=== PATIENT | female | born 1965 | race Caucasian/White ===

== ENCOUNTER 2019-10-06 07:56 | Emergency (ER) | payer MEDICAID ==
[~2019-10-06] VITALS: Ht 162.6 cm; Wt 75.6 kg
[2019-10-06 08:09] VITALS: BP 178/76
--- NOTE | 2019-10-06 08:30 | NUR ---
PRETZEL PACKER: PT TO ROOM FROM LOBBY
--- NOTE | 2019-10-06 08:43 | NUR ---
Pt here with bilateral ear pain. States she has no PMH. Lives [facility].
--- NOTE | 2019-10-06 08:47 | NUR ---
REPORT RECEIVED FROM LUIS LINDSEY. [facility]
== END 2019-10-06 09:04 | disposition home or self-care (01) ==
LOC: ED 08:54
DX: H66.003 Acute suppurative otitis media without spontaneous rupture of ear drum, bilateral (principal); H60.502 Unspecified acute noninfective otitis externa, left ear; F17.210 Nicotine dependence, cigarettes, uncomplicated
CPT/HCPCS: 99283

== ENCOUNTER 2019-10-30 23:54 | Emergency (ER) | payer MEDICAID ==
[~2019-10-30] VITALS: Ht 167.6 cm; Wt 86.7 kg
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
[2019-10-31 00:24] LABS: BASOPHILS # (AUTO) 0.03 x10^3/uL (0-0.1); BASOPHILS % (AUTO) 0 % (0-1); EOSINOPHILS # (AUTO) 0.12 x10^3/uL (0-0.4); EOSINOPHILS % (AUTO) 2 % (1-7); LYMPHOCYTES # (AUTO) 3.47 x10^3/uL (1-3.4); LYMPHOCYTES % (AUTO) 42 % (22-44); MD NO; MEAN CORPUSCULAR HEMOGLOBIN 33.2 pg (27.0-34.8); MEAN CORPUSCULAR HGB CONC 33.3 g/dL (32.4-35.8); MEAN CORPUSCULAR VOLUME 99.7 fL (80-100); MEAN PLATELET VOLUME 8.6 fL (7.4-10.4); MONOCYTES # (AUTO) 0.59 x10^3/uL (0.2-0.8); MONOCYTES % (AUTO) 7 % (2-9); NEUTROPHILS # (AUTO) 4.04 x10^3/uL (1.8-6.8); NEUTROPHILS % (AUTO) 49 % (42-75); PLATELET COUNT 233 x10^3/uL (130-400); RED BLOOD COUNT 4.35 x10^6/uL (3.82-5.3); RED CELL DISTRIBUTION WIDTH 14.5 % (9.6-15.2)
--- NOTE | 2019-10-31 00:25 | NUR ---
XRAY AT AT THIS TIME.
[2019-10-31] MEDS ORDERED: SODIUM CHLORIDE FLUSH 10ML SYR IVF ONE (00:30)
[2019-10-31 00:31] LABS: ALBUMIN 3.1 g/dL (3.4-5.0); ANION GAP 13 mmol/L (5-15); CALCIUM 7.7 mg/dL (8.5-10.1); CHLORIDE 108 mmol/L (98-107); CREATININE 0.99 mg/dL (0.55-1.02)
--- NOTE | 2019-10-31 01:18 | NUR ---
PT ASLEEP IN [facility]. PT NEEDS TO BE AROUSED REPEATEDLY AND REMINDED TO DEEP BREATHE TO KEEP O2 ABOVE 92%, BUT IS ABLE TO FOLLOW INSTRUCTIONS AND COOPERATES WITH STAFF. PT VSS AND UPDATED IN EMR AT THIS TIME. PT REQUESTING TAXI [facility] HOME UPON D/C.
--- NOTE | 2019-10-31 01:43 | NUR ---
REPORT FROM KHOA SMITH. PT RESTING AND IS AROUSABLE TO VOICE, VSS, CALL LIGHT IN REACH
[2019-10-31 03:06] VITALS: BP 106/71
--- NOTE | 2019-10-31 03:07 | NUR ---
PT AMBULATED TO BATHROOM WITH A STEADY GAIT. PIV REMOVED AND PT GIVEN CAB VOUCHER HOME.
== END 2019-10-31 03:09 | disposition home or self-care (01) ==
LOC: ED 10-31 01:00
DX: F11.10 Opioid abuse, uncomplicated (principal); F15.10 Other stimulant abuse, uncomplicated; T40.1X1A Poisoning by heroin, accidental (unintentional), initial encounter; R94.31 Abnormal electrocardiogram [ECG] [EKG]; R41.82 Altered mental status, unspecified; F17.200 Nicotine dependence, unspecified, uncomplicated; Y92.89 Other specified places as the place of occurrence of the external cause
CPT/HCPCS: 36415; 71045; 80048; 80307; 82040; 85025; 93005; 99285

== ENCOUNTER 2019-11-27 05:54 | Emergency (ER) | payer MEDICAID ==
[~2019-11-27] VITALS: Ht 160 cm; Wt 73.8 kg
[2019-11-27 05:57] VITALS: BP 112/73
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
== END 2019-11-27 06:27 | disposition home or self-care (01) ==
LOC: ED 06:16
DX: R10.32 Left lower quadrant pain (principal); R10.12 Left upper quadrant pain; R11.2 Nausea with vomiting, unspecified; R19.7 Diarrhea, unspecified; F17.200 Nicotine dependence, unspecified, uncomplicated
CPT/HCPCS: 99283

== ENCOUNTER 2020-04-27 09:38 | Emergency (ER) | payer MEDICAID ==
[~2020-04-27] VITALS: Ht 162.6 cm; Wt 72.5 kg
[2020-04-27] MEDS ORDERED: ALBUTEROL 0.5%, 20ML ONE (09:40)
[2020-04-27] MEDS ORDERED: ALBUTEROL 0.5%, 20ML NPPBCONT PRN (09:40)
[2020-04-27 09:57] LABS: BASOPHILS % (AUTO) 1 % (0-1); EOSINOPHILS % (AUTO) 0 % (1-7); LYMPHOCYTES % (AUTO) 35 % (22-44); MEAN CORPUSCULAR HEMOGLOBIN 33.4 pg (27.0-34.8); MEAN CORPUSCULAR HGB CONC 32.3 g/dL (32.4-35.8); MEAN PLATELET VOLUME 8.1 fL (7.4-10.4); MONOCYTES % (AUTO) 7 % (2-9); NEUTROPHILS % (AUTO) 57 % (42-75); PLATELET COUNT 324 x10^3/uL (130-400); RED BLOOD COUNT 4.74 x10^6/uL (3.82-5.3); RED CELL DISTRIBUTION WIDTH 13.8 % (9.6-15.2)
[2020-04-27] MEDS ORDERED: PLEASE ENTER HEIGHT AND WEIGHT MC SCH (10:00)
[2020-04-27] MEDS ORDERED: PLEASE ENTER ALLERGIES MC SCH (10:00)
[2020-04-27] MEDS ORDERED: SODIUM CHLORIDE FLUSH 10ML SYR IVF ONE (10:00)
[2020-04-27 10:04] LABS: ALANINE AMINOTRANSFERASE 151 U/L (12-78); ALBUMIN 3.4 g/dL (3.4-5.0); ANION GAP 14 mmol/L (5-15); CALCIUM 8.6 mg/dL (8.5-10.1); CHLORIDE 106 mmol/L (98-107)
[2020-04-27 10:08] LABS: ALKALINE PHOSPHATASE 129 U/L (45-117); BILIRUBIN,TOTAL 0.3 mg/dL (0.2-1.0); TOTAL PROTEIN 8.3 g/dL (6.4-8.2); TROPONIN I < 0.015 ng/mL (0.000-0.045)
--- NOTE | 2020-04-27 10:11 | NUR ---
0930, BIB EMS FROM HOME, PT CYANOTIC & UNRESPONSIVE. BVM INITIATED AND 0.5MG NARCAN GIVEN W/ EFFECT. SPON BREATHING AND 100% ON RA, PT THEN DETERIATED INROUTE AND A 2ND DOSE 0.25MG NARCAN GIVEN WITH EFFECT. PT PRESENTS, AWAKE BUT DROWSY, GILES TO COMMAND, INCREASED WOB, +STRIDOR AND DECREASED BS T/O. +DOAPHORETIC. DR JACKSON AT BEDSIDE, PT ARROUSES TO VERBAL STIM, AND GILES APPROPRIATELY TO COMMAND, DENIES ANY DRUG USE. ALL MNITORS PLACED AND EKG OBTAINED. AUDIBLE STRIDOR, RESP WITH USE OF ABDOBMINAL MUSCLES WITH SEW/SAW MOTION. RT AT BEDSIDE AND CONT BREATHING TREATMENT INITIATED.
--- NOTE | 2020-04-27 10:18 | NUR ---
STRIDOR SLIGHTLY IMPROVED. PT REMAINS DRWSY BUT ARRUSES EASILY, ABLE TO PROVIDE NAME AND . CLINICAL SCREEN COMPLETED. ASSESSMENT DISCUSSED WITH DR. JACKSON. PT VSS
[2020-04-27] MEDS ORDERED: methylPREDNISolone SOD SUCC 125 MG/2 ML ONE (10:38)
[2020-04-27 10:47] LABS: MD SCAN
[2020-04-27] MEDS ORDERED: methylPREDNISolone SOD SUCC 125 MG/2 ML IV ONE (11:00)
--- NOTE | 2020-04-27 11:13 | NUR ---
RT AT BEDSIDE, BIPAP INITIATED WITH EFFECT. STRIDOR RESSOLVED AND NOW ABLE TO AUSCULTATE LUNG SOUNDS T/O. RV 550'S. BIPAP 15/8 FI02 100% BACKUP RATE 8. PT TOLLERATING WELL
[2020-04-27] MEDS ORDERED: CEFTRIAXONE PMX 1GM/50ML 50 ML ONE (11:22)
--- NOTE | 2020-04-27 11:27 | NUR ---
PICTURE COPYIST AT BEDSIDE TO DRAW BLD CULTURES
[2020-04-27] MEDS ORDERED: AZITHROMYCIN 500 MG in SODIUM CHLORIDE 0.9% 250 ML IV ONE (11:30)
[2020-04-27] MEDS ORDERED: CEFTRIAXONE PMX 1GM/50ML 50 ML IV ONE (11:30)
--- NOTE | 2020-04-27 11:54 | NUR ---
FLOAT RN: PT DOING WELL ON BIPAP AT THIS TIME. PT NON RESPONSIVE TO VERBAL STIMULI HOWEVER AWAKENS BRIEFLY WHEN TOUCHED. NAD. VSS. ABX INFUSING.
--- NOTE | 2020-04-27 12:36 | NUR ---
DR RODRIGUES AND PULMNOLOGIST AT BEDSIDE. ORDER REC'D TO D/C BIPAP, 100%NRB PLACED.
--- NOTE | 2020-04-27 12:42 | NUR ---
PT WAS PLACED ON NRB MASK TO FACILITATE MD BEING ABLE TO TALK TO PT. BIPAP RE-INITIATED.
[2020-04-27] MEDS ORDERED: NICOTINE 21 MG/24 HR PATCH.TD24 TD SCH (13:00)
[2020-04-27] MEDS ORDERED: ENOXAPARIN 40 MG/0.4 ML SQ SCH (13:00)
[2020-04-27] MEDS ORDERED: ONDANSETRON 2MG/ML, 2ML IVPush PRN (13:00)
[2020-04-27] MEDS ORDERED: LABETALOL 5MG/ML, 20ML IVPush PRN (13:00)
[2020-04-27] MEDS ORDERED: MELATONIN 5 MG TABLET PO PRN (13:00)
[2020-04-27] MEDS: methylPREDNISolone SOD SUCC 125 MG/2 ML IVPush SCH (13:00)
[2020-04-27] MEDS ORDERED: ACETAMINOPHEN 325 MG TABLET PO PRN (13:00)
[2020-04-27] MEDS ORDERED: NALOXONE 0.4 MG/ML, 1ML IVPush ONE (13:00)
[2020-04-27] MEDS ORDERED: DOCUSATE 100 MG CAPSULE PO PRN (13:00)
[2020-04-27] MEDS ORDERED: POTASSIUM CHLORIDE 20 MEQ in SODIUM CHLORIDE 0.9% 250 ML IV ONE (13:00)
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
[2020-04-27 13:46] LABS: FREE T4 (FREE THYROXINE) 0.99 ng/dL (0.76-1.46)
[2020-04-27] MEDS ORDERED: LORazepam 1MG TABLET PO PRN ×3 (14:00)
[2020-04-27] MEDS ORDERED: LORazepam 2 MG/ML, 1ML IV PRN ×2 (14:00)
[2020-04-27] MEDS ORDERED: LORazepam 0.5MG TABLET PO PRN (14:00)
[2020-04-27] MEDS ORDERED: THIAMINE 100 MG in SODIUM CHLORIDE 0.9% 50 ML IV SCH (14:00)
--- NOTE | 2020-04-27 14:20 | NUR ---
PT TO CT, ON MONITOR, 100%NRB MASK AT 10L, AND RN ESCORT.
--- NOTE | 2020-04-27 14:30 | NUR ---
PT RTD TO ED W/O INCIDENT. ORAL CARE COMPLETED AND BED LINEN CHANGE. BIPAP MASK RE-PLACED AND THERAPY CONTINUED.
[2020-04-27] MEDS ORDERED: OMNIPAQUE 350 MG/ML, 150 ML BOTTLE ONE (14:35)
[2020-04-27] MEDS ORDERED: ENOXAPARIN 40 MG/0.4 ML ONE (14:59)
[2020-04-27] MEDS ORDERED: NICOTINE 21 MG/24 HR PATCH.TD24 ONE (14:59)
[2020-04-27 15:26] LABS: AMPHETAMINE SCREEN, URINE Positive (Negative); BARBITURATE SCREEN, URINE Negative (Negative); BENZODIAZEPINE SCREEN, URINE Negative (Negative); CANNABINOID SCREEN, URINE Negative (Negative); COCAINE SCREEN, URINE Negative (Negative); METHADONE SCREEN, URINE Negative (Negative); OPIATE SCREEN, URINE Negative (Negative)
[2020-04-27 15:26] LABS: INTERNATIONAL NORMALIZED RATIO 1.05 (0.93-1.1); PROTHROMBIN TIME 11.1 Seconds (9.6-11.5)
--- NOTE | 2020-04-27 15:43 | NUR ---
DISCUSSED ABG RESULTS WITH DR BYERS, SP02 CORRELATES THE P02 ON THE BLOOD GAS. WILL TITRATE DOWN FI02 TO MAINTAIN SP02 GREATER THAN 90%
--- NOTE | 2020-04-27 16:25 | NUR ---
BIPAP MASK REMOVED AND ORAL CARE COMPLETED. PT TOLLERATED WELL AND WAS COOPERATIVE. PT OOB TO COMMODE WITH MIN ASSIST. VOIDED AND RTD TO [facility]. BIPAP MASK IN PLACE AND THERAPY CONTINUES. RT AT BEDSIDE, FI02 SUPPORT DECREASED TO .50
--- NOTE | 2020-04-27 17:44 | NUR ---
PT MOVED ONTO HOSPITAL BED. PT ABLE TO STAND AND TRANSFER, TOLLERATED ACTIVITY WELL.
--- NOTE | 2020-04-27 19:46 | NUR ---
SORAIDAAR RPT TO LUIS LYNN
--- NOTE | 2020-04-27 20:52 | NUR ---
PT SLEEPING IN FLOOR BED, PT ON BIPIAP, PT ON MONITOR, PT VSS, RN WILL CONTINUE TO ASSESS PT
[2020-04-27] MEDS ORDERED: SODIUM CHLORIDE FLUSH 10ML SYR IVF SCH (21:00)
[2020-04-27] MEDS ORDERED: FAMOTIDINE 20 MG/2 ML IVPush SCH (21:00)
--- NOTE | 2020-04-27 21:34 | NUR ---
PT REQUESTED WATER, RN PERFORMED SWOLLOW SCEEN ON PT, PT DRANK 90ML OF WATER WITHOUT DIFFICULTY = PASSED
[2020-04-27] MEDS ORDERED: FAMOTIDINE 20 MG/2 ML ONE (21:38)
[2020-04-27] MEDS ORDERED: LORazepam 2 MG/ML, 1ML ONE (21:50)
[2020-04-27] MEDS: LORazepam 2 MG/ML, 1ML IV PRN (21:53)
--- NOTE | 2020-04-27 22:53 | NUR ---
pt sleeping in floor bed with bipap, monitor conected to pt, pt vss. pt has no wants or needs at this time. pt medicated per emar
--- NOTE | 2020-04-28 00:02 | NUR ---
PT MOVED TO RESP ROOM ER39, PT DID NOT AWAKE DUYRING TRANSPORT FROM ROOM TO ROOM, PT SLEEPING IN FLOOR BED ON MONITOR IN ED 39. PT VSS
[2020-04-28] MEDS ORDERED: methylPREDNISolone SOD SUCC 125 MG/2 ML ONE ×2 (00:08→06:33)
[2020-04-28] MEDS: methylPREDNISolone SOD SUCC 125 MG/2 ML IVPush SCH ×2 (00:11→06:35)
--- NOTE | 2020-04-28 01:14 | NUR ---
PT SLEEPING IN FLOOR BED, PT ON BIPIAP, PT ON MONITOR, PT VSS, RN WILL CONTINUE TO ASSESS PT
[2020-04-28] MEDS ORDERED: LORazepam 2 MG/ML, 1ML ONE (02:09)
--- NOTE | 2020-04-28 02:14 | NUR ---
PT REMOVED BIPAP DEVISE FROM HEAD AND WAS 85% AT CONTACT, PT AGGITATED. PT ASSISTED TO BEDSIDE BATHROOM AND PT RETURNED BACK TO BED, CIWA ASSESMENT DONE, PT MEDICATED PER EMAR. PT MORE CALM AFTER WITH BIPAP REPLACED BEFORE MEDS
[2020-04-28] MEDS: LORazepam 2 MG/ML, 1ML IV PRN (02:17)
--- NOTE | 2020-04-28 04:57 | NUR ---
PT SLEEPING IN FLOOR BED, PT ON BIPIAP, PT ON MONITOR, PT VSS, RN WILL CONTINUE TO ASSESS PT
--- NOTE | 2020-04-28 06:31 | NUR ---
PT SLEEPING IN BED WITH BIPAP ON PT, PT ON MONITOR, PT VSS
[2020-04-28 06:55] LABS: ALANINE AMINOTRANSFERASE 104 U/L (12-78); ALBUMIN 2.9 g/dL (3.4-5.0); ANION GAP 5 mmol/L (5-15); CALCIUM 8.7 mg/dL (8.5-10.1); CHLORIDE 107 mmol/L (98-107); CREATININE 0.47 mg/dL (0.55-1.02)
[2020-04-28 06:58] LABS: ALKALINE PHOSPHATASE 108 U/L (45-117); BILIRUBIN,TOTAL 0.3 mg/dL (0.2-1.0); TOTAL PROTEIN 7.7 g/dL (6.4-8.2)
[2020-04-28 07:03] LABS: BASOPHILS % (AUTO) 0 % (0-1); EOSINOPHILS % (AUTO) 0 % (1-7); LYMPHOCYTES % (AUTO) 8 % (22-44); MEAN CORPUSCULAR HEMOGLOBIN 32.8 pg (27.0-34.8); MEAN CORPUSCULAR HGB CONC 32.1 g/dL (32.4-35.8); MEAN PLATELET VOLUME 8.5 fL (7.4-10.4); MONOCYTES % (AUTO) 2 % (2-9); NEUTROPHILS % (AUTO) 90 % (42-75); PLATELET COUNT 351 x10^3/uL (130-400); RED BLOOD COUNT 4.51 x10^6/uL (3.82-5.3); RED CELL DISTRIBUTION WIDTH 13.9 % (9.6-15.2)
--- NOTE | 2020-04-28 07:03 | NUR ---
I AM ASSUMING CARE OF THIS PT FROM JOLLY (LUIS). SBAR WAS EXCHANGED AT THE BEDSIDE.
--- NOTE | 2020-04-28 07:03 | NUR ---
CORRECTION TO PRIOR NOTE. I AM ASSUMING CARE OF THIS PT FROM SHANE (LUIS). SBAR WAS EXCHANGED AT THE BEDSIDE.
--- NOTE | 2020-04-28 07:36 | NUR ---
cardiac rhythm strip printed and placed on chart
[2020-04-28 07:55] LABS: MD SCAN
--- NOTE | 2020-04-28 08:49 | NUR ---
PT REFUSING TO KEEP BIPAP ON, CHANGED TO 6Lnc SAT 91, PT ANGRY STATES SHE WANTS TO LEAVE, EXPLAINED NEED TO STAY DUE TO OXYGEN NEED.
[2020-04-28 08:51] VITALS: BP 137/79
[2020-04-28] MEDS ORDERED: CEFTRIAXONE PMX 1GM/50ML 50 ML ONE (08:58)
[2020-04-28] MEDS ORDERED: AZITHROMYCIN 500 MG in SODIUM CHLORIDE 0.9% 250 ML IV SCH (09:00)
[2020-04-28] MEDS ORDERED: CEFTRIAXONE PMX 1GM/50ML 50 ML IV SCH (09:00)
--- NOTE | 2020-04-28 09:10 | NUR ---
TIFFANIE (RN) IS ASSUMING CARE OF THIS PT AT THIS TIME. SBAR WAS EXCHANGED AT THE BEDSIDE.
--- NOTE | 2020-04-28 09:12 | NUR ---
CALLED DR. RODRIGUES REGARDING PATIENT REFUSING BIPAP, ENTITLE AT 31-40 ON 6LNC. PT STATES OK TO FEED PT, MAY DOWN GRADE PT.
--- NOTE | 2020-04-28 09:39 | NUR ---
PT AT 100% BREAKFAST, DRINKING COFFEE, GAVE TOOTHBRUSH AND TOOTHPASTE FOR AM CARE.
--- NOTE | 2020-04-28 09:45 | NUR ---
Makenzie escoto in [place] - 04/28/20 at 0956 by MICHAEL ORAL HYGIENE KIT PROVIDED TO PATIENT
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
--- NOTE | 2020-04-28 10:18 | NUR ---
DR. RODRIGUES, SOMMER RT AND THIS RN IN ROOM. PT STATES SHE WANTS TO GO AMA, STATES, "I DONT CARE IF I , I NEED TO GO HOME AND TAKE CARE OF MY ANIMALS". PT A&OX4. AGREED TO GO HOME WITH OXYGEN AND POLYSTYRENE BEAD MOLDER MEDICATIONS FOR [facility]. 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
[2020-04-28] MEDS ORDERED: AZIT500T10 PO (10:22)
[2020-04-28] MEDS ORDERED: FLUT1AER INH (10:22)
[2020-04-28] MEDS ORDERED: AMOX1TAB64 PO (10:22)
[2020-04-28] MEDS ORDERED: ALBU18HF INH (10:22)
[2020-04-28] MEDS ORDERED: PRED20TA PO (10:22)
--- NOTE | 2020-04-28 10:29 | NUR ---
GAVE HER CLOTHES FROM [employer] [facility]
--- NOTE | 2020-04-28 10:47 | NUR ---
JEANNIE SUN WORKING ON HOME OXYGEN. EXPLAINED TO PATIENT. PT SIGNED AMA PAPERWORK AND VERBALIZED UNDERSTANDING.
--- NOTE | 2020-04-28 11:36 | NUR ---
PT SITTING IN CHAIR, OXBRENNANEN AT 6LNC AWAITING FOR HOME OXYGEN. VERBALIZED NO NEEDS AT THIS TIME
--- NOTE | 2020-04-28 12:11 | NUR ---
PT LEFT, STATES, "I DONT WANT TO WAIT FOR OXYGEN". PT LEFT AMA.
== END 2020-04-28 12:14 | disposition left against medical advice (07) ==
LOC: EDBD → MERGE 09:38 → ED 11:26 → UNDOADMIN 11:28 → EDIP 11:28 → ED 11:29
DX: J06.9 Acute upper respiratory infection, unspecified (principal); Z20.828 Contact with and (suspected) exposure to other viral communicable diseases; R23.0 Cyanosis; J44.1 Chronic obstructive pulmonary disease with (acute) exacerbation; K70.9 Alcoholic liver disease, unspecified
CPT/HCPCS: 36600; 70491; 71045; 71260; 76700; 80053; 80074; 80307; 82607; 82803; 83605; 83735; 83880; 84100; 84145; 84439; 84443; 84484; 85025; 85610; 87040; 87635; 93005; 94644; 94660; 96365; 96366; 96367; 96368; 96372; 96375; 96376; 99291; J0456; J0696; J1650; J2060; J2930; J3411; J3480; J7050; Q9967

== ENCOUNTER 2020-09-09 10:46 | Inpatient (IN) | payer MEDICAID ==
[~2020-09-09] VITALS: Ht 157.5 cm; Wt 76.8 kg
[~2020-09-09 10:46] MED LIST: ALBU18HF INH; AMOX1TAB64 PO; AZIT500T10 PO; FLUT1AER INH; PRED20TA PO
[2020-09-09] MEDS ORDERED: MORPHINE SULFATE 4 MG/ML, 1ML ONE ×2 (11:05→12:22)
[2020-09-09] MEDS ORDERED: ONDANSETRON 2MG/ML, 2ML ONE (11:05)
[2020-09-09] MEDS: MORPHINE SULFATE 4 MG/ML, 1ML IVPush PRN ×2 (11:09→12:24)
--- NOTE | 2020-09-09 11:27 | NUR ---
PT CAME IN CO DIFFUSE ABD PAIN WHICH SHE DESCRIBES A "BURNING". PT ALSO REPORTS BLACK STOOL X 3 WEEKS. PT DENIES IRON SUPPLEMENT USE. EKG COMPLETE. STOOL OCCULT EXAM POSITIVE (PERFORMED BY ). IV STARTED. PT MEDICATED PER AUG. WARM BLANKET PROVIDED. CONNECTED TO MONITORING EQUIPMENT
[2020-09-09] MEDS ORDERED: PANTOPRAZOLE 80 MG in SODIUM CHLORIDE 0.9% 100 ML IV SCH (11:30)
[2020-09-09] MEDS ORDERED: ONDANSETRON 2MG/ML, 2ML IVPush ONE (11:30)
[2020-09-09] MEDS ORDERED: PANTOPRAZOLE 80 MG in SODIUM CHLORIDE 0.9% 50 ML IVPB ONE (11:30)
[2020-09-09] MEDS ORDERED: SODIUM CHLORIDE FLUSH 10ML SYR IVF ONE (11:30)
[2020-09-09 11:41] LABS: BASOPHILS % (AUTO) 0 % (0-1); EOSINOPHILS % (AUTO) 1 % (1-7); LYMPHOCYTES % (AUTO) 8 % (22-44); MEAN CORPUSCULAR HEMOGLOBIN 32.1 pg (27.0-34.8); MEAN CORPUSCULAR HGB CONC 33.8 g/dL (32.4-35.8); MEAN PLATELET VOLUME 7.9 fL (7.4-10.4); MONOCYTES % (AUTO) 6 % (2-9); NEUTROPHILS % (AUTO) 85 % (42-75); PLATELET COUNT 589 x10^3/uL (130-400); RED CELL DISTRIBUTION WIDTH 13.9 % (9.6-15.2)
[2020-09-09 11:46] LABS: ALANINE AMINOTRANSFERASE 7 U/L (12-78); ALBUMIN 2.5 g/dL (3.4-5.0); ANION GAP 9 mmol/L (5-15); CALCIUM 9.9 mg/dL (8.5-10.1); CHLORIDE 101 mmol/L (98-107); CREATININE 1.16 mg/dL (0.55-1.02)
[2020-09-09 11:47] LABS: INTERNATIONAL NORMALIZED RATIO 1.13 (0.93-1.1); MD NO; PROTHROMBIN TIME 12.1 Seconds (9.6-11.5)
[2020-09-09 11:50] LABS: ALKALINE PHOSPHATASE 178 U/L (45-117); BILIRUBIN,TOTAL 0.3 mg/dL (0.2-1.0); TOTAL PROTEIN 7.1 g/dL (6.4-8.2)
[2020-09-09] MEDS ORDERED: SODIUM CHLORIDE FLUSH 10ML SYR IVF PRN (12:30)
[2020-09-09 12:45] VITALS: BP 123/54
[2020-09-09] MEDS ORDERED: OMNIPAQUE 350 MG/ML, 100ML BOTTLE ONE (12:47)
[2020-09-09 12:57] VITALS: BP 106/66
--- NOTE | 2020-09-09 12:58 | NUR ---
BLOOD INFUSING. PT TOELRATING WELL. VSS.
[2020-09-09] MEDS ORDERED: POTASSIUM CHLORIDE 40 MEQ in SODIUM CHLORIDE 0.9% 500 ML IV ONE ×2 (13:00→15:00)
--- NOTE | 2020-09-09 13:18 | NUR ---
TASK RN: REPORT GIVEN TO SHEELA VALDEZ RN. ALL QUESTIONS ANSWERED.
[2020-09-09 13:40] VITALS: BP 119/80
[2020-09-09 13:45] VITALS: BP 119/80
[2020-09-09] MEDS ORDERED: LABETALOL 5MG/ML, 20ML IVPush PRN (14:30)
[2020-09-09] MEDS: PANTOPRAZOLE 80 MG in SODIUM CHLORIDE 0.9% 100 ML IV SCH ×2 (14:30→22:32)
[2020-09-09] MEDS ORDERED: hydrALAzine 20 MG/ML, 1ML IVPush PRN (14:30)
[2020-09-09] MEDS ORDERED: ONDANSETRON ODT 4 MG PO PRN (14:30)
[2020-09-09] MEDS ORDERED: ONDANSETRON 2MG/ML, 2ML IVPush PRN (14:30)
[2020-09-09] MEDS ORDERED: morphine SULFATE 10 MG/ML, 1ML IVPush PRN (14:30)
[2020-09-09] MEDS: CEFTRIAXONE PMX 2GM/50ML 50 ML IVPB SCH ×2 (15:00→15:39)
[2020-09-09 15:18] LABS: AMPHETAMINE SCREEN, URINE Negative (Negative); BARBITURATE SCREEN, URINE Negative (Negative); BENZODIAZEPINE SCREEN, URINE Negative (Negative); CANNABINOID SCREEN, URINE Negative (Negative); COCAINE SCREEN, URINE Negative (Negative); METHADONE SCREEN, URINE Negative (Negative); OPIATE SCREEN, URINE Positive (Negative)
[2020-09-09] MEDS: morphine SULFATE 10 MG/ML, 1ML IVPush PRN ×3 (16:19→23:03)
[2020-09-09] MEDS ORDERED: POTASSIUM CHLORIDE 20 MEQ in SODIUM CHLORIDE 0.9% 1,000 ML IV ONE (17:00)
[2020-09-09] MEDS: METRONIDAZOLE PMX 500MG/100ML 100 ML IV SCH (17:31)
[2020-09-09 19:17] VITALS: BP 124/86
[2020-09-09] MEDS: NS + 20MEQ KCL 1,000 ML IV SCH (21:57)
[2020-09-10] MEDS ORDERED: LORazepam 2 MG/ML, 1ML IVPush ONE
[2020-09-10] MEDS: METRONIDAZOLE PMX 500MG/100ML 100 ML IV SCH ×3 (01:25→19:14)
[2020-09-10] MEDS: morphine SULFATE 10 MG/ML, 1ML IVPush PRN ×6 (02:19→23:43)
[2020-09-10 02:44] VITALS: BP 94/58
[2020-09-10 06:00] LABS: ANION GAP 5 mmol/L (5-15); CALCIUM 9.9 mg/dL (8.5-10.1); CHLORIDE 110 mmol/L (98-107); CREATININE 1.06 mg/dL (0.55-1.02)
[2020-09-10 06:02] LABS: BASOPHILS % (AUTO) 1 % (0-1); EOSINOPHILS % (AUTO) 3 % (1-7); LYMPHOCYTES % (AUTO) 12 % (22-44); MEAN CORPUSCULAR HEMOGLOBIN 31.2 pg (27.0-34.8); MEAN CORPUSCULAR HGB CONC 34.3 g/dL (32.4-35.8); MONOCYTES % (AUTO) 7 % (2-9); NEUTROPHILS % (AUTO) 77 % (42-75); PLATELET COUNT 568 x10^3/uL (130-400); RED BLOOD COUNT 2.45 x10^6/uL (3.82-5.3); RED CELL DISTRIBUTION WIDTH 16.3 % (9.6-15.2)
[2020-09-10 06:17] LABS: MD NO
[2020-09-10] MEDS ORDERED: LORazepam 2 MG/ML, 1ML ONE (06:40)
[2020-09-10] MEDS: NS + 20MEQ KCL 1,000 ML IV SCH ×3 (07:46→23:44)
[2020-09-10 08:52] VITALS: BP 102/66
[2020-09-10] MEDS: PANTOPRAZOLE 80 MG in SODIUM CHLORIDE 0.9% 100 ML IV SCH ×2 (08:58→23:43)
[2020-09-10] MEDS ORDERED: CHLORHEXIDINE 15 ML UDC ONE (10:31)
[2020-09-10] MEDS ORDERED: PROPOFOL 10 MG/ML, 20ML ONE ×2 (11:04→11:21)
[2020-09-10] MEDS ORDERED: hydrALAzine 20 MG/ML, 1ML IV PRN (11:30)
[2020-09-10] MEDS ORDERED: ONDANSETRON 2MG/ML, 2ML IVPush PRN (11:30)
[2020-09-10] MEDS ORDERED: OXYcodone 5 MG/5 ML ORAL.SOL UDC PO PRN (11:30)
[2020-09-10] MEDS ORDERED: LABETALOL 5MG/ML, 20ML IV PRN (11:30)
[2020-09-10] MEDS ORDERED: ALBUTEROL SULFATE 2.5 MG/3 ML NPPB PRN (11:30)
[2020-09-10] MEDS ORDERED: PROMETHAZINE 25 MG/ML, 1ML IVPush PRN (11:30)
[2020-09-10] MEDS ORDERED: FENTANYL PF 100 MCG/2ML IV PRN (11:30)
[2020-09-10] MEDS: SUCRALFATE 1 GM/10 ML UDC PO SCH ×3 (12:00→19:44)
[2020-09-10] MEDS: CEFTRIAXONE PMX 2GM/50ML 50 ML IVPB SCH (15:55)
[2020-09-10 20:07] VITALS: BP 112/67
[2020-09-11 00:43] VITALS: BP 120/80
[2020-09-11] MEDS: METRONIDAZOLE PMX 500MG/100ML 100 ML IV SCH ×3 (02:54→20:17)
[2020-09-11] MEDS: morphine SULFATE 10 MG/ML, 1ML IVPush PRN ×7 (02:55→21:53)
[2020-09-11 05:09] LABS: BASOPHILS % (AUTO) 1 % (0-1); EOSINOPHILS % (AUTO) 4 % (1-7); LYMPHOCYTES % (AUTO) 25 % (22-44); MEAN CORPUSCULAR HGB CONC 33.6 g/dL (32.4-35.8); MEAN PLATELET VOLUME 7.9 fL (7.4-10.4); MONOCYTES % (AUTO) 9 % (2-9); NEUTROPHILS % (AUTO) 61 % (42-75); PLATELET COUNT 590 x10^3/uL (130-400); RED BLOOD COUNT 2.34 x10^6/uL (3.82-5.3); RED CELL DISTRIBUTION WIDTH 16.1 % (9.6-15.2)
[2020-09-11 05:17] LABS: ALBUMIN 2.3 g/dL (3.4-5.0); ANION GAP 6 mmol/L (5-15); CALCIUM 10.8 mg/dL (8.5-10.1); CHLORIDE 110 mmol/L (98-107)
[2020-09-11 05:18] LABS: CREATININE 0.93 mg/dL (0.55-1.02)
[2020-09-11 05:19] LABS: MD NO
[2020-09-11 06:49] VITALS: BP 106/50
[2020-09-11] MEDS: SUCRALFATE 1 GM/10 ML UDC PO SCH ×4 (07:33→21:55)
[2020-09-11] MEDS ORDERED: MAGNESIUM SULFATE PMX 2GM/50ML 50 ML IV ONE (09:30)
[2020-09-11] MEDS: NS + 20MEQ KCL 1,000 ML IV SCH ×2 (11:44→20:17)
[2020-09-11] MEDS: PANTOPRAZOLE 80 MG in SODIUM CHLORIDE 0.9% 100 ML IV SCH (11:44)
[2020-09-11 15:00] VITALS: BP 100/65
[2020-09-11] MEDS: CEFTRIAXONE PMX 2GM/50ML 50 ML IVPB SCH (15:09)
[2020-09-11] MEDS: PANTOPRAZOLE 20MG TABLET PO SCH (17:21)
[2020-09-11 19:09] VITALS: BP 110/65
[2020-09-12] MEDS: morphine SULFATE 10 MG/ML, 1ML IVPush PRN ×6 (00:33→20:27)
[2020-09-12 01:35] VITALS: BP 103/65
[2020-09-12] MEDS: METRONIDAZOLE PMX 500MG/100ML 100 ML IV SCH ×3 (03:32→20:13)
[2020-09-12] MEDS: NS + 20MEQ KCL 1,000 ML IV SCH ×3 (04:57→23:10)
[2020-09-12] MEDS: PANTOPRAZOLE 20MG TABLET PO SCH ×2 (06:23→16:28)
[2020-09-12 06:50] VITALS: BP 116/75
[2020-09-12] MEDS: SUCRALFATE 1 GM/10 ML UDC PO SCH ×4 (07:52→20:13)
[2020-09-12 09:19] LABS: BASOPHILS % (AUTO) 1 % (0-1); EOSINOPHILS % (AUTO) 2 % (1-7); LYMPHOCYTES % (AUTO) 25 % (22-44); MEAN CORPUSCULAR HEMOGLOBIN 31.7 pg (27.0-34.8); MEAN CORPUSCULAR HGB CONC 33.9 g/dL (32.4-35.8); MEAN PLATELET VOLUME 7.8 fL (7.4-10.4); MONOCYTES % (AUTO) 11 % (2-9); NEUTROPHILS % (AUTO) 62 % (42-75); PLATELET COUNT 653 x10^3/uL (130-400); RED BLOOD COUNT 2.46 x10^6/uL (3.82-5.3); RED CELL DISTRIBUTION WIDTH 16.5 % (9.6-15.2)
[2020-09-12 09:20] LABS: MD NO
[2020-09-12 09:29] LABS: ALBUMIN 2.3 g/dL (3.4-5.0); ANION GAP 5 mmol/L (5-15); CALCIUM 10.2 mg/dL (8.5-10.1); CHLORIDE 110 mmol/L (98-107); CREATININE 0.86 mg/dL (0.55-1.02)
[2020-09-12] MEDS ORDERED: ACETAMINOPHEN 500 MG TABLET ONE (11:34)
[2020-09-12] MEDS: ACETAMINOPHEN 500 MG TABLET PO PRN ×2 (11:36→20:13)
[2020-09-12 13:54] VITALS: BP 108/61
[2020-09-12] MEDS: CEFTRIAXONE PMX 2GM/50ML 50 ML IVPB SCH (15:20)
[2020-09-12] MEDS: MAGNESIUM SULFATE PMX 2GM/50ML 50 ML IV SCH (16:28)
[2020-09-12 18:37] VITALS: BP 112/65
[2020-09-13] MEDS: morphine SULFATE 10 MG/ML, 1ML IVPush PRN ×5 (01:01→13:35)
[2020-09-13 01:15] VITALS: BP 110/67
[2020-09-13] MEDS: ACETAMINOPHEN 500 MG TABLET PO PRN ×2 (04:00→10:20)
[2020-09-13] MEDS: METRONIDAZOLE PMX 500MG/100ML 100 ML IV SCH ×2 (04:04→12:02)
[2020-09-13 05:20] LABS: BASOPHILS % (AUTO) 0 % (0-1); EOSINOPHILS % (AUTO) 2 % (1-7); LYMPHOCYTES % (AUTO) 24 % (22-44); MEAN CORPUSCULAR HEMOGLOBIN 31.1 pg (27.0-34.8); MEAN CORPUSCULAR HGB CONC 33.2 g/dL (32.4-35.8); MONOCYTES % (AUTO) 10 % (2-9); NEUTROPHILS % (AUTO) 64 % (42-75); PLATELET COUNT 699 x10^3/uL (130-400); RED BLOOD COUNT 2.44 x10^6/uL (3.82-5.3); RED CELL DISTRIBUTION WIDTH 16.2 % (9.6-15.2)
[2020-09-13 05:27] LABS: MD NO
[2020-09-13 05:30] LABS: ALBUMIN 2.3 g/dL (3.4-5.0); ANION GAP 5 mmol/L (5-15); CALCIUM 9.6 mg/dL (8.5-10.1); CHLORIDE 112 mmol/L (98-107); CREATININE 0.79 mg/dL (0.55-1.02)
[2020-09-13] MEDS: PANTOPRAZOLE 20MG TABLET PO SCH (06:13)
[2020-09-13] MEDS: MAGNESIUM SULFATE PMX 2GM/50ML 50 ML IV SCH (06:13)
[2020-09-13 06:40] VITALS: BP 112/72
[2020-09-13] MEDS: SUCRALFATE 1 GM/10 ML UDC PO SCH ×2 (07:18→10:20)
[2020-09-13 12:00] VITALS: BP 133/93
[2020-09-13] MEDS ORDERED: SUCR1ORA5 PO (13:11)
[2020-09-13] MEDS ORDERED: PANT20TA4 PO (13:11)
[2020-09-13] MEDS ORDERED: AMOX1TAB64 PO ×2 (13:11)
[2020-09-13] MEDS ORDERED: [UNRECOGNIZED DRUG - CODE] PO ×2 (14:55)
== END 2020-09-13 15:48 | disposition home or self-care (01) | DRG 241 ==
LOC: ED 11:24 → EDIP 12:16 → 4EST 13:30
PROVIDERS: ADMIT Hospitalist; ATTEND Hospitalist
PROC: 30233N1 Transfusion of Nonautologous Red Blood Cells into Peripheral Vein, Percutaneous Approach (ICD-10-PCS; 2020-09-09)
PROC: 0DB68ZX Excision of Stomach, Via Natural or Artificial Opening Endoscopic, Diagnostic (ICD-10-PCS; principal; 2020-09-10 11:30)
DX: K25.4 Chronic or unspecified gastric ulcer with hemorrhage (principal); E43 Unspecified severe protein-calorie malnutrition; N17.9 Acute kidney failure, unspecified; Z20.822 Contact with and (suspected) exposure to COVID-19; K29.21 Alcoholic gastritis with bleeding; D62 Acute posthemorrhagic anemia; E87.6 Hypokalemia; K29.80 Duodenitis without bleeding; F17.210 Nicotine dependence, cigarettes, uncomplicated; F15.90 Other stimulant use, unspecified, uncomplicated; D72.829 Elevated white blood cell count, unspecified; D47.3 Essential (hemorrhagic) thrombocythemia; I10 Essential (primary) hypertension; E66.9 Obesity, unspecified; E11.9 Type 2 diabetes mellitus without complications; K22.10 Ulcer of esophagus without bleeding; Z79.899 Other long term (current) drug therapy; Z68.31 Body mass index [BMI] 31.0-31.9, adult
CPT/HCPCS: 36415; 36430; 74177; 74240; 80048; 80053; 80069; 80299; 80307; 80320; 80329; 82941; 83605; 83690; 83735; 84145; 85014; 85018; 85025; 85610; 85730; 86850; 86900; 86923; 87040; 87635; 88305; 93005; 96365; 96375; G0378; J0696; J2405; J2704; J3480; Q9967; C9113; G0480; J2060; J2270; J3475; J7040; P9016

== ENCOUNTER 2020-10-25 18:01 | Inpatient (IN) | payer MEDICAID ==
[~2020-10-25] VITALS: Ht 162.6 cm; Wt 70.4 kg
[~2020-10-25 18:01] MED LIST changes: +PANT20TA4 PO; +SUCR1ORA5 PO; +[UNRECOGNIZED DRUG - CODE] PO
[2020-10-25] MEDS ORDERED: SODIUM CHLORIDE 0.9% 1,000ML IVBOLUS ONE (18:30)
[2020-10-25] MEDS ORDERED: SODIUM CHLORIDE FLUSH 10ML SYR IVF ONE (18:30)
--- NOTE | 2020-10-25 18:35 | NUR ---
ABIGAIL FROM [facility] FOR RLQ AND LLQ ABD PAIN 10/ AND BLACK TARRY STOOLS. PT STATES SHE WAS DISCHARGED FOR SAME ISSUE IN AUGUST. POOR HISTORIAN. WHEN ASKED IF ANY ETOH PT WILL STATE "I HAVENT DRANK IN 2 MONTHS", THEN IF ASKED BY ANOTHER PERSON PTS ANSWER WILL CHANGE TO "I HAVENT DRANK IN 2 WEEKS." PT REQUESTING ASPIRIN FOR PAIN AND STATES THAT WHAT SHE TAKES AT HOME.
[2020-10-25 19:11] LABS: BASOPHILS % (AUTO) 0 % (0-1); EOSINOPHILS % (AUTO) 0 % (1-7); LYMPHOCYTES % (AUTO) 17 % (22-44); MEAN CORPUSCULAR HEMOGLOBIN 29.8 pg (27.0-34.8); MEAN CORPUSCULAR HGB CONC 33.8 g/dL (32.4-35.8); MEAN PLATELET VOLUME 8.8 fL (7.4-10.4); MONOCYTES % (AUTO) 9 % (2-9); NEUTROPHILS % (AUTO) 73 % (42-75); PLATELET COUNT 486 x10^3/uL (130-400); RED BLOOD COUNT 4.45 x10^6/uL (3.82-5.3); RED CELL DISTRIBUTION WIDTH 14.8 % (9.6-15.2)
[2020-10-25 19:13] LABS: MD NO
[2020-10-25 19:24] LABS: ALANINE AMINOTRANSFERASE 14 U/L (12-78); ALBUMIN 2.7 g/dL (3.4-5.0); ANION GAP 8 mmol/L (5-15); CHLORIDE 99 mmol/L (98-107); CREATININE 1.67 mg/dL (0.55-1.02)
[2020-10-25 19:26] LABS: ALKALINE PHOSPHATASE 433 U/L (45-117); BILIRUBIN,TOTAL 0.3 mg/dL (0.2-1.0); TOTAL PROTEIN 8.2 g/dL (6.4-8.2)
[2020-10-25] MEDS ORDERED: MORPHINE SULFATE 4 MG/ML, 1ML IVPush PRN (19:30)
[2020-10-25] MEDS ORDERED: MORPHINE SULFATE 4 MG/ML, 1ML ONE (19:34)
[2020-10-25 19:46] LABS: CALCIUM 16.7 mg/dL (8.5-10.1)
--- NOTE | 2020-10-25 19:47 | NUR ---
UA COLLECTED AND SENT TO LAB
[2020-10-25] MEDS ORDERED: SODIUM CHLORIDE 0.9% 1,000 ML IV ONE (20:00)
[2020-10-25] MEDS ORDERED: POTASSIUM CHLORIDE 20 MEQ TAB.ER.PRT PO ONE (20:00)
[2020-10-25] MEDS ORDERED: FUROSEMIDE 40 MG/4 ML IV ONE (20:00)
[2020-10-25 20:01] LABS: MICROSCOPIC INDICATED
[2020-10-25] MEDS ORDERED: FUROSEMIDE 20 MG/2 ML ONE (20:08)
[2020-10-25] MEDS ORDERED: POTASSIUM CHLORIDE 20 MEQ TAB.ER.PRT ONE (20:08)
[2020-10-25 20:33] LABS: FREE T4 (FREE THYROXINE) 1.06 ng/dL (0.76-1.46)
[2020-10-25] MEDS ORDERED: hydrALAzine 20 MG/ML, 1ML IVPush PRN (21:00)
[2020-10-25] MEDS ORDERED: POLYETHYLENE GLYCOL 17 GM PACKET PO PRN (21:00)
[2020-10-25] MEDS ORDERED: ONDANSETRON 2MG/ML, 2ML IVPush PRN (21:00)
[2020-10-25] MEDS ORDERED: PROMETHAZINE 25 MG/ML, 1ML IM PRN (21:00)
[2020-10-25] MEDS ORDERED: BISACODYL 10 MG SUPP PR PRN (21:00)
[2020-10-25] MEDS ORDERED: ONDANSETRON ODT 4 MG PO PRN (21:00)
[2020-10-25] MEDS ORDERED: ZOLEDRONIC ACID 4MG/100ML 100 ML IV ONE (21:30)
[2020-10-25] MEDS ORDERED: MAGNESIUM SULFATE PMX 4GM/100M 100 ML IVPB ONE (21:30)
[2020-10-25] MEDS ORDERED: ALBUTEROL HFA 90 MCG/SPRAY INH PRN (21:30)
[2020-10-25] MEDS ORDERED: POTASSIUM CHLORIDE 40 MEQ in SODIUM CHLORIDE 0.9% 500 ML IV ONE (21:30)
--- NOTE | 2020-10-25 21:41 | NUR ---
BREAK RN: PT RESTING IN ROOM WITH EYES CLOSED, EVEN AND UNLABORED RESPIRATIONS. VSS. AWAITING ROOM ASSIGNMENT.
[2020-10-25] MEDS ORDERED: MAGNESIUM SULFATE PMX 4GM/100M 100 ML ONE (21:46)
--- NOTE | 2020-10-25 22:12 | NUR ---
REPORT GIVEN TO MABEL SMITH
[2020-10-25] MEDS ORDERED: ZOLEDRONIC ACID 4 MG in SODIUM CHLORIDE 0.9% 100 ML IV ONE (23:00)
[2020-10-25] MEDS: HEPARIN 5,000 UNITS/ML, 1ML SQ SCH (23:15)
[2020-10-25] MEDS: morphine SULFATE 10 MG/ML, 1ML IVPush PRN (23:16)
[2020-10-25] MEDS: SODIUM CHLORIDE 0.9% 1,000 ML IV SCH (23:25)
[2020-10-25] MEDS ORDERED: ALBUTEROL SULFATE 2.5 MG/3 ML NPPB PRN (23:30)
[2020-10-26 00:24] VITALS: BP 120/81
[2020-10-26 01:02] VITALS: BP 120/81
[2020-10-26] MEDS: OXYcodone IR 5MG TABLET PO PRN ×3 (04:21→20:26)
[2020-10-26] MEDS: HEPARIN 5,000 UNITS/ML, 1ML SQ SCH ×3 (06:22→23:08)
[2020-10-26 06:38] LABS: BASOPHILS % (AUTO) 0 % (0-1); EOSINOPHILS % (AUTO) 1 % (1-7); LYMPHOCYTES % (AUTO) 15 % (22-44); MEAN CORPUSCULAR HEMOGLOBIN 29.8 pg (27.0-34.8); MEAN CORPUSCULAR HGB CONC 33.4 g/dL (32.4-35.8); MEAN PLATELET VOLUME 8.4 fL (7.4-10.4); MONOCYTES % (AUTO) 8 % (2-9); NEUTROPHILS % (AUTO) 77 % (42-75); PLATELET COUNT 432 x10^3/uL (130-400); RED BLOOD COUNT 3.85 x10^6/uL (3.82-5.3); RED CELL DISTRIBUTION WIDTH 14.9 % (9.6-15.2)
[2020-10-26 06:39] LABS: MD NO
[2020-10-26 06:48] LABS: ALANINE AMINOTRANSFERASE 12 U/L (12-78); ALBUMIN 2.5 g/dL (3.4-5.0); ANION GAP 5 mmol/L (5-15); CHLORIDE 103 mmol/L (98-107); CREATININE 1.48 mg/dL (0.55-1.02)
[2020-10-26 06:51] LABS: ALKALINE PHOSPHATASE 351 U/L (45-117); BILIRUBIN,TOTAL 0.2 mg/dL (0.2-1.0); CHOL/HDL RATIO 6.9; CHOLESTEROL, TOTAL 159 mg/dL (140-239); HDL CHOL % 14 % (28-40); HDL CHOLESTEROL (DIRECT) 23 mg/dL (40-60); LDL CHOLESTEROL,CALCULATED 86 mg/dL (54-169); LDL/HDL RATIO 3.7 (0.5-3.0); TRIGLYCERIDES 252 mg/dL (50-200); VLDL CHOLESTEROL 50 mg/dL (0-25)
[2020-10-26 08:04] VITALS: BP 107/70
[2020-10-26] MEDS: PANTOPRAZOLE 40 MG IV IVPush SCH (08:16)
[2020-10-26] MEDS: SENNA/DOCUSATE TABLET PO SCH (08:16)
[2020-10-26] MEDS: SODIUM CHLORIDE 0.9% 1,000 ML IV SCH (08:17)
[2020-10-26] MEDS ORDERED: MORPHINE SULFATE 4 MG/ML, 1ML ONE (08:29)
[2020-10-26] MEDS: morphine SULFATE 10 MG/ML, 1ML IVPush PRN ×2 (08:32→13:36)
[2020-10-26] MEDS: ALBUTEROL SULFATE 2.5 MG/3 ML NPPB SCH ×2 (09:00→21:00)
[2020-10-26] MEDS: BUDESONIDE 0.5 MG/2 ML INHA NPPB SCH ×2 (09:00→21:00)
[2020-10-26] MEDS ORDERED: FLUTICASONE/VILANTEROL 200-25MCG/INH INH SCH (09:00)
[2020-10-26] MEDS ORDERED: CALCITONIN SALMON 200 UNITS/ML, 2ML SQ ONE (12:00)
[2020-10-26] MEDS ORDERED: ZOLEDRONIC ACID 4 MG in SODIUM CHLORIDE 0.9% 100 ML IV ONE ×2 (12:30→13:00)
[2020-10-26 13:23] VITALS: BP 138/86
[2020-10-26] MEDS: FUROSEMIDE 20 MG/2 ML IV SCH (16:50)
[2020-10-26 17:39] LABS: ANION GAP 7 mmol/L (5-15); CALCIUM 13.6 mg/dL (8.5-10.1); CHLORIDE 105 mmol/L (98-107); CREATININE 1.25 mg/dL (0.55-1.02)
[2020-10-26 19:10] VITALS: BP 125/71
[2020-10-26] MEDS: POTASSIUM CHLORIDE 10% 40 MEQ/30 ML UDC PO SCH (20:26)
[2020-10-26] MEDS ORDERED: POTASSIUM CHLORIDE 10% 40 MEQ/30 ML UDC PO SCH (21:00)
[2020-10-27 01:08] VITALS: BP 110/71
[2020-10-27] MEDS: morphine SULFATE 10 MG/ML, 1ML IVPush PRN (01:13)
[2020-10-27 05:12] LABS: BASOPHILS % (AUTO) 1 % (0-1); EOSINOPHILS % (AUTO) 0 % (1-7); LYMPHOCYTES % (AUTO) 5 % (22-44); MEAN CORPUSCULAR HEMOGLOBIN 29.4 pg (27.0-34.8); MEAN CORPUSCULAR HGB CONC 33.5 g/dL (32.4-35.8); MEAN PLATELET VOLUME 8.9 fL (7.4-10.4); MONOCYTES % (AUTO) 3 % (2-9); NEUTROPHILS % (AUTO) 91 % (42-75); PLATELET COUNT 360 x10^3/uL (130-400); RED BLOOD COUNT 3.53 x10^6/uL (3.82-5.3)
[2020-10-27 05:13] LABS: MD NO
[2020-10-27 05:18] LABS: ALANINE AMINOTRANSFERASE 10 U/L (12-78); ANION GAP 7 mmol/L (5-15); CALCIUM 11.9 mg/dL (8.5-10.1); CHLORIDE 105 mmol/L (98-107); CREATININE 1.35 mg/dL (0.55-1.02)
[2020-10-27 05:20] LABS: ALKALINE PHOSPHATASE 286 U/L (45-117); BILIRUBIN,TOTAL 0.2 mg/dL (0.2-1.0); TOTAL PROTEIN 6.5 g/dL (6.4-8.2)
[2020-10-27] MEDS: HEPARIN 5,000 UNITS/ML, 1ML SQ SCH ×2 (06:30→17:43)
[2020-10-27] MEDS: BUDESONIDE 0.5 MG/2 ML INHA NPPB SCH ×2 (07:12→21:11)
[2020-10-27] MEDS: ALBUTEROL SULFATE 2.5 MG/3 ML NPPB SCH ×2 (07:12→18:16)
[2020-10-27 07:42] VITALS: BP 108/61
[2020-10-27] MEDS ORDERED: PHARMACY MAY ADJ FOR RENAL FX MC PRN (10:00)
[2020-10-27] MEDS ORDERED: MIDAZOLAM 1 MG/ML, 5ML ONE (10:09)
[2020-10-27] MEDS ORDERED: FENTANYL PF 100 MCG/2ML ONE ×2 (10:10)
[2020-10-27] MEDS ORDERED: NALOXONE 1 MG/ML, 2ML ONE (10:10)
[2020-10-27] MEDS ORDERED: FLUMAZENIL 0.1 MG/1 ML, 5ML ONE (10:10)
[2020-10-27] MEDS ORDERED: POTASSIUM CHLORIDE 20 MEQ in SODIUM CHLORIDE 0.9% 250 ML IV ONE (10:30)
[2020-10-27] MEDS: FUROSEMIDE 20 MG/2 ML IV SCH ×2 (12:05→17:43)
[2020-10-27] MEDS: PANTOPRAZOLE 40 MG IV IVPush SCH (12:05)
[2020-10-27] MEDS: POTASSIUM CHLORIDE 10% 40 MEQ/30 ML UDC PO SCH (12:05)
[2020-10-27] MEDS: PIPERACILLIN/TAZO 3.375 GM in DEXTROSE 5% 50 ML IV SCH ×3 (12:06→23:43)
[2020-10-27] MEDS: POTASSIUM CHLORIDE 20 MEQ in LACTATED RINGERS 1,000 ML IV SCH ×2 (12:06→22:07)
[2020-10-27] MEDS: SENNA/DOCUSATE TABLET PO SCH (12:06)
[2020-10-27] MEDS: ACETAMINOPHEN 325 MG TABLET PO PRN ×2 (12:07→16:09)
[2020-10-27 15:51] VITALS: BP 89/59
[2020-10-27 16:38] LABS: BASOPHILS % (AUTO) 0 % (0-1); EOSINOPHILS % (AUTO) 1 % (1-7); LYMPHOCYTES % (AUTO) 10 % (22-44); MEAN CORPUSCULAR HEMOGLOBIN 29.4 pg (27.0-34.8); MEAN CORPUSCULAR HGB CONC 32.8 g/dL (32.4-35.8); MEAN PLATELET VOLUME 8.7 fL (7.4-10.4); MONOCYTES % (AUTO) 4 % (2-9); NEUTROPHILS % (AUTO) 85 % (42-75); PLATELET COUNT 364 x10^3/uL (130-400); RED BLOOD COUNT 3.49 x10^6/uL (3.82-5.3); RED CELL DISTRIBUTION WIDTH 14.8 % (9.6-15.2)
[2020-10-27 16:39] LABS: MD NO
[2020-10-27 16:46] LABS: ANION GAP 6 mmol/L (5-15); CALCIUM 10.7 mg/dL (8.5-10.1); CHLORIDE 106 mmol/L (98-107); CREATININE 1.57 mg/dL (0.55-1.02)
[2020-10-27 19:39] VITALS: BP 97/64
[2020-10-28] VITALS (9 sets, daily range): BP systolic 95–124; BP diastolic 60–75
[2020-10-28] MEDS: HEPARIN 5,000 UNITS/ML, 1ML SQ SCH ×3 (01:35→17:45)
[2020-10-28] MEDS: morphine SULFATE 10 MG/ML, 1ML IVPush PRN ×4 (02:01→18:04)
[2020-10-28] MEDS: POTASSIUM CHLORIDE 20 MEQ in LACTATED RINGERS 1,000 ML IV SCH ×2 (04:39→11:03)
[2020-10-28] MEDS: PIPERACILLIN/TAZO 3.375 GM in DEXTROSE 5% 50 ML IV SCH ×4 (06:04→23:25)
[2020-10-28] MEDS: BUDESONIDE 0.5 MG/2 ML INHA NPPB SCH ×2 (07:54→21:00)
[2020-10-28] MEDS: ALBUTEROL SULFATE 2.5 MG/3 ML NPPB SCH ×2 (07:54→21:00)
[2020-10-28] MEDS: FUROSEMIDE 20 MG/2 ML IV SCH ×2 (09:13→17:45)
[2020-10-28] MEDS: SENNA/DOCUSATE TABLET PO SCH (09:13)
[2020-10-28] MEDS: PANTOPRAZOLE 40 MG IV IVPush SCH (09:13)
[2020-10-28 09:24] LABS: BASOPHILS % (AUTO) 0 % (0-1); EOSINOPHILS % (AUTO) 1 % (1-7); LYMPHOCYTES % (AUTO) 17 % (22-44); MEAN CORPUSCULAR HEMOGLOBIN 29.6 pg (27.0-34.8); MEAN CORPUSCULAR HGB CONC 33.2 g/dL (32.4-35.8); MEAN PLATELET VOLUME 8.5 fL (7.4-10.4); MONOCYTES % (AUTO) 8 % (2-9); NEUTROPHILS % (AUTO) 74 % (42-75); PLATELET COUNT 336 x10^3/uL (130-400); RED BLOOD COUNT 3.29 x10^6/uL (3.82-5.3); RED CELL DISTRIBUTION WIDTH 14.7 % (9.6-15.2)
[2020-10-28 09:29] LABS: ALANINE AMINOTRANSFERASE 13 U/L (12-78); ALBUMIN 2.1 g/dL (3.4-5.0); ANION GAP 6 mmol/L (5-15); CALCIUM 9.8 mg/dL (8.5-10.1); CHLORIDE 107 mmol/L (98-107); CREATININE 1.25 mg/dL (0.55-1.02)
[2020-10-28 09:31] LABS: ALKALINE PHOSPHATASE 229 U/L (45-117); BILIRUBIN,TOTAL 0.2 mg/dL (0.2-1.0); MD NO; TOTAL PROTEIN 6.5 g/dL (6.4-8.2)
[2020-10-28] MEDS: OXYcodone IR 5MG TABLET PO PRN ×3 (10:53→21:16)
[2020-10-28] MEDS ORDERED: POTASSIUM CHLORIDE 40 MEQ in SODIUM CHLORIDE 0.9% 500 ML IV ONE (11:30)
[2020-10-29] MEDS: HEPARIN 5,000 UNITS/ML, 1ML SQ SCH ×3 (02:04→17:09)
[2020-10-29 02:12] VITALS: BP 113/80
[2020-10-29] MEDS: OXYcodone IR 5MG TABLET PO PRN ×3 (04:44→19:12)
[2020-10-29 05:05] LABS: ANION GAP 7 mmol/L (5-15); CALCIUM 9.3 mg/dL (8.5-10.1); CHLORIDE 109 mmol/L (98-107); CREATININE 1.02 mg/dL (0.55-1.02)
[2020-10-29] MEDS: PIPERACILLIN/TAZO 3.375 GM in DEXTROSE 5% 50 ML IV SCH ×4 (05:52→23:36)
[2020-10-29 07:03] VITALS: BP 101/66
[2020-10-29] MEDS: ALBUTEROL SULFATE 2.5 MG/3 ML NPPB SCH ×2 (07:17→21:00)
[2020-10-29] MEDS: BUDESONIDE 0.5 MG/2 ML INHA NPPB SCH ×2 (07:17→21:00)
[2020-10-29] MEDS: PANTOPRAZOLE 40 MG IV IVPush SCH (08:04)
[2020-10-29] MEDS: FUROSEMIDE 20 MG/2 ML IV SCH (08:05)
[2020-10-29] MEDS: morphine SULFATE 10 MG/ML, 1ML IVPush PRN ×5 (08:06→23:34)
[2020-10-29] MEDS: SENNA/DOCUSATE TABLET PO SCH (08:06)
[2020-10-29] MEDS ORDERED: POTASSIUM CHLORIDE 40 MEQ in SODIUM CHLORIDE 0.9% 500 ML IV ONE (09:00)
[2020-10-29] MEDS ORDERED: POTASSIUM CHLORIDE 20 MEQ in LACTATED RINGERS 1,000 ML IV SCH (10:30)
[2020-10-29 12:10] VITALS: BP 115/62
[2020-10-29] MEDS ORDERED: MAGNESIUM SULFATE PMX 2GM/50ML 50 ML IV ONE ×2 (13:30→21:00)
[2020-10-29 19:28] VITALS: BP 105/66
[2020-10-30] MEDS: HEPARIN 5,000 UNITS/ML, 1ML SQ SCH ×3 (02:05→18:11)
[2020-10-30] MEDS: OXYcodone IR 5MG TABLET PO PRN ×2 (02:08→23:02)
[2020-10-30 03:23] VITALS: BP 124/67
[2020-10-30] MEDS: morphine SULFATE 10 MG/ML, 1ML IVPush PRN ×6 (04:06→20:53)
[2020-10-30] MEDS: PIPERACILLIN/TAZO 3.375 GM in DEXTROSE 5% 50 ML IV SCH (06:29)
[2020-10-30 06:58] LABS: BASOPHILS % (AUTO) 0 % (0-1); EOSINOPHILS % (AUTO) 2 % (1-7); LYMPHOCYTES % (AUTO) 27 % (22-44); MEAN CORPUSCULAR HEMOGLOBIN 29.6 pg (27.0-34.8); MEAN CORPUSCULAR HGB CONC 33.3 g/dL (32.4-35.8); MEAN PLATELET VOLUME 8.6 fL (7.4-10.4); MONOCYTES % (AUTO) 11 % (2-9); NEUTROPHILS % (AUTO) 60 % (42-75); PLATELET COUNT 358 x10^3/uL (130-400); RED BLOOD COUNT 3.13 x10^6/uL (3.82-5.3)
[2020-10-30 07:07] LABS: MD NO
[2020-10-30 07:10] LABS: ALBUMIN 2.2 g/dL (3.4-5.0); ANION GAP 4 mmol/L (5-15); CALCIUM 9.2 mg/dL (8.5-10.1); CHLORIDE 108 mmol/L (98-107)
[2020-10-30 07:13] LABS: ALANINE AMINOTRANSFERASE 13 U/L (12-78); ALKALINE PHOSPHATASE 234 U/L (45-117); BILIRUBIN,TOTAL 0.1 mg/dL (0.2-1.0); CREATININE 0.95 mg/dL (0.55-1.02); TOTAL PROTEIN 7.1 g/dL (6.4-8.2)
[2020-10-30 07:28] VITALS: BP 90/58
[2020-10-30] MEDS: PANTOPRAZOLE 40 MG IV IVPush SCH (08:04)
[2020-10-30] MEDS: SENNA/DOCUSATE TABLET PO SCH (08:07)
[2020-10-30] MEDS: ALBUTEROL SULFATE 2.5 MG/3 ML NPPB SCH ×2 (09:00→21:00)
[2020-10-30] MEDS: BUDESONIDE 0.5 MG/2 ML INHA NPPB SCH ×2 (09:00→21:00)
[2020-10-30] MEDS ORDERED: POTASSIUM CHLORIDE 40 MEQ in SODIUM CHLORIDE 0.9% 500 ML IV ONE (09:30)
[2020-10-30] MEDS: AMOXICILLIN/CLAV 875-125MG TABLET PO SCH ×2 (09:30→20:53)
[2020-10-30 12:15] VITALS: BP 105/64
[2020-10-30 20:00] VITALS: BP 108/69
[2020-10-31] MEDS: morphine SULFATE 10 MG/ML, 1ML IVPush PRN ×7 (00:56→22:53)
[2020-10-31 02:43] VITALS: BP 103/67
[2020-10-31] MEDS: HEPARIN 5,000 UNITS/ML, 1ML SQ SCH ×3 (02:56→18:07)
[2020-10-31 05:31] LABS: ANION GAP 5 mmol/L (5-15); CALCIUM 9.3 mg/dL (8.5-10.1); CHLORIDE 111 mmol/L (98-107); CREATININE 0.68 mg/dL (0.55-1.02)
[2020-10-31 05:32] LABS: BASOPHILS % (AUTO) 0 % (0-1); EOSINOPHILS % (AUTO) 2 % (1-7); LYMPHOCYTES % (AUTO) 24 % (22-44); MEAN CORPUSCULAR HEMOGLOBIN 29.5 pg (27.0-34.8); MEAN CORPUSCULAR HGB CONC 33.5 g/dL (32.4-35.8); MEAN PLATELET VOLUME 8.6 fL (7.4-10.4); MONOCYTES % (AUTO) 10 % (2-9); NEUTROPHILS % (AUTO) 64 % (42-75); PLATELET COUNT 364 x10^3/uL (130-400); RED BLOOD COUNT 3.32 x10^6/uL (3.82-5.3); RED CELL DISTRIBUTION WIDTH 14.9 % (9.6-15.2)
[2020-10-31 05:33] LABS: MD NO
[2020-10-31] MEDS: PANTOPRAZOLE 40MG TABLET PO SCH (08:11)
[2020-10-31] MEDS: AMOXICILLIN/CLAV 875-125MG TABLET PO SCH (08:11)
[2020-10-31] MEDS: SENNA/DOCUSATE TABLET PO SCH (08:12)
[2020-10-31] MEDS: OXYcodone IR 5MG TABLET PO PRN ×3 (09:31→23:21)
[2020-10-31] MEDS ORDERED: POTASSIUM PHOSPHATE 44 MEQ in SODIUM CHLORIDE 0.9% 500 ML IV ONE (10:00)
[2020-10-31] MEDS ORDERED: MAGNESIUM SULFATE PMX 4GM/100M 100 ML IVPB ONE (10:00)
[2020-10-31 10:19] VITALS: BP 113/84
[2020-10-31] MEDS: BUDESONIDE 0.5 MG/2 ML INHA NPPB SCH ×2 (11:05→19:30)
[2020-10-31] MEDS: ALBUTEROL SULFATE 2.5 MG/3 ML NPPB SCH ×2 (11:05→19:30)
[2020-10-31 12:51] VITALS: BP 105/70
[2020-10-31 18:51] VITALS: BP 104/85
[2020-11-01 01:31] VITALS: BP 117/74
[2020-11-01] MEDS: HEPARIN 5,000 UNITS/ML, 1ML SQ SCH ×3 (02:04→16:23)
[2020-11-01] MEDS: morphine SULFATE 10 MG/ML, 1ML IVPush PRN ×6 (02:05→23:32)
[2020-11-01] MEDS: OXYcodone IR 5MG TABLET PO PRN ×3 (04:20→21:15)
[2020-11-01 05:39] LABS: CHLORIDE 107 mmol/L (98-107)
[2020-11-01 05:45] LABS: ANION GAP 6 mmol/L (5-15); CALCIUM 9.2 mg/dL (8.5-10.1); CREATININE 0.62 mg/dL (0.55-1.02)
[2020-11-01 07:07] VITALS: BP 118/75
[2020-11-01] MEDS: SENNA/DOCUSATE TABLET PO SCH (08:49)
[2020-11-01] MEDS: PANTOPRAZOLE 40MG TABLET PO SCH (08:49)
[2020-11-01] MEDS: BUDESONIDE 0.5 MG/2 ML INHA NPPB SCH ×2 (09:00→20:10)
[2020-11-01] MEDS: ALBUTEROL SULFATE 2.5 MG/3 ML NPPB SCH ×2 (09:00→20:10)
[2020-11-01] MEDS ORDERED: FENTANYL 25 MCG PATCH TD SCH (10:00)
[2020-11-01 14:32] VITALS: BP 106/65
[2020-11-01 17:40] VITALS: BP 119/76
[2020-11-01] MEDS ORDERED: TEMAZEPAM 15 MG CAPSULE PO PRN (19:30)
[2020-11-01 20:50] VITALS: BP 105/63
[2020-11-02] MEDS: HEPARIN 5,000 UNITS/ML, 1ML SQ SCH ×3 (01:38→17:29)
[2020-11-02] MEDS: OXYcodone IR 5MG TABLET PO PRN ×5 (01:38→19:42)
[2020-11-02] MEDS: morphine SULFATE 10 MG/ML, 1ML IVPush PRN ×8 (01:58→21:59)
[2020-11-02 03:01] VITALS: BP 106/71
[2020-11-02 05:39] LABS: ANION GAP 4 mmol/L (5-15); CHLORIDE 108 mmol/L (98-107); CREATININE 0.61 mg/dL (0.55-1.02)
[2020-11-02] MEDS: SENNA/DOCUSATE TABLET PO SCH (08:16)
[2020-11-02] MEDS: PANTOPRAZOLE 40MG TABLET PO SCH (08:16)
[2020-11-02 08:40] VITALS: BP 109/52
[2020-11-02] MEDS: ALBUTEROL SULFATE 2.5 MG/3 ML NPPB SCH ×2 (09:20→21:25)
[2020-11-02] MEDS: BUDESONIDE 0.5 MG/2 ML INHA NPPB SCH ×2 (09:20→21:25)
[2020-11-02 11:52] VITALS: BP 106/69
[2020-11-02 19:13] VITALS: BP 111/71
[2020-11-03] MEDS: morphine SULFATE 10 MG/ML, 1ML IVPush PRN ×3 (01:13→11:35)
[2020-11-03 01:33] VITALS: BP 119/80
[2020-11-03] MEDS: HEPARIN 5,000 UNITS/ML, 1ML SQ SCH ×2 (01:45→07:50)
[2020-11-03 07:41] VITALS: BP 113/75
[2020-11-03] MEDS: PANTOPRAZOLE 40MG TABLET PO SCH (07:57)
[2020-11-03] MEDS: SENNA/DOCUSATE TABLET PO SCH (07:57)
[2020-11-03] MEDS: OXYcodone IR 5MG TABLET PO PRN (10:17)
[2020-11-03] MEDS ORDERED: OXYC5TAB98 PO (10:26)
[2020-11-03] MEDS ORDERED: FENT1PAT78 TP (10:26)
[2020-11-04] MEDS ORDERED: FENTANYL REMOVE PATCH NOTE XX SCH (10:30)
== END 2020-11-03 11:48 | disposition hospice, home (50) | DRG 691 ==
LOC: ED 18:11 → EDIP 21:11 → 4WST 22:41
PROVIDERS: ADMIT Internal Medicine; ATTEND Internal Medicine
PROC: 07DR3ZX Extraction of Iliac Bone Marrow, Percutaneous Approach, Diagnostic (ICD-10-PCS; principal; 2020-10-27)
DX: C90.00 Multiple myeloma not having achieved remission (principal); J96.21 Acute and chronic respiratory failure with hypoxia; E43 Unspecified severe protein-calorie malnutrition; J18.9 Pneumonia, unspecified organism; N17.9 Acute kidney failure, unspecified; I95.9 Hypotension, unspecified; R64 Cachexia; E83.39 Other disorders of phosphorus metabolism; E83.42 Hypomagnesemia; M84.48XA Pathological fracture, other site, initial encounter for fracture; Z51.5 Encounter for palliative care; E86.0 Dehydration; E83.52 Hypercalcemia; E87.6 Hypokalemia; F17.210 Nicotine dependence, cigarettes, uncomplicated; G89.3 Neoplasm related pain (acute) (chronic); J44.0 Chronic obstructive pulmonary disease with (acute) lower respiratory infection; K59.00 Constipation, unspecified; R62.7 Adult failure to thrive; Z87.11 Personal history of peptic ulcer disease; D63.0 Anemia in neoplastic disease; F15.10 Other stimulant abuse, uncomplicated; F10.129 Alcohol abuse with intoxication, unspecified; Z68.26 Body mass index [BMI] 26.0-26.9, adult
CPT/HCPCS: 36415; 36600; 38222; 70450; 71045; 71250; 74022; 74176; 77012; 80048; 80053; 80061; 81001; 82232; 82306; 82310; 82330; 82533; 82803; 83036; 83615; 83690; 83735; 83970; 84100; 84155; 84156; 84165; 84166; 84439; 84443; 84481; 85025; 85060; 85097; 87086; 88237; 88264; 88280; 88305; 88311; 88341; 88342; 93005; 94640; 96361; 96374; 96375; 99156; 99157; 99291; G0378; J1644; J1940; J2250; J2543; J3010; J3480; J3489; J7613; J7626; C9113; J0630; J2270; J2310; J3475; J7030; J7040; J7050; J7120